=== PATIENT | female | born 1995 | race Caucasian/White ===

== ENCOUNTER 2020-06-24 05:28 | Observation (INO) | payer OTHER, SELFPAY ==
[2020-06-24 05:32] VITALS: BP 129/73; PULSE 85; RESP 20; TEMP 36.5; O2SAT 98
--- NOTE | 2020-06-24 06:04 | PC.NURSE ---
pt just stated she is 35 weeks preg. charge nurse notified
--- NOTE | 2020-06-24 06:10 | PC.NURSE ---
bernie OB, report to Benita MYLES. pt to be transported to Labor and Delivery for obs.
[2020-06-24 06:30] VITALS: BMI 36.3
[2020-06-24 06:31] VITALS: BP 101/70; PULSE 82
[2020-06-24 07:43] LABS: Add Urine Microscopic? YES; Appearance Urine Clear (Clear); Bacteria Urine Trace /hpf; Bilirubin Urine Negative (Negative); Blood Urine Negative (Negative); Color Urine Straw (Yellow); Glucose Urine UA Negative (Negative); Ketones Urine Negative (Negative); Leukocyte Esterase Ur Trace LEU/UL (NEGATIVE); Nitrate Urine Negative (Negative); Protein Urine Negative (Negative); Specific Grav Ur 1.011 (1.001-1.035); Squamous Epithelial Cell Urine Few /hpf (Few); Urobilinogen Urine Negative mg/dL (<2.0); WBC Urine 0-3 /hpf (0-3)
--- NOTE | 2020-06-24 08:31 | OBADM ---
This patient, Baylee Perez, admitted to the OB room OB Post 116 for observation. Patient/family oriented to hospital policies and general routines including ID bracelet, bed and alarms, visiting hours, pain management, procedures, bathroom and other care routines, personal items, smoking policy, room service/diet, and visiting hours. Patient/Family are encouraged to report perceived risks to care and to ask questions if they do not understand what they are told or what they should do.
--- NOTE | 2020-07-03 18:16 | P.PNOB_ITS ---
OB - Triage/Final Diagnosis Visit Information Date of evaluation: 06/26/20 Comments/Additional reasons for admission: Growth restriction Evaluation Baseline heart rate: 144 Variability: Average (6-10) monitor accelerations: Present monitor decelerations: Variable Cervical dilation (cm): 0 Cervical effacement (%): 0 station: -3 Laboratory results: Laboratory Tests 06/24/20 07:32 Urine Color Straw Urine Appearance Clear Urine pH 7.0 Ur Specific [place] 1.011 Urine Protein Negative Urine Glucose (UA) Negative Urine Ketones Negative Ur Blood (Man) Negative Urine Nitrate Negative Urine Bilirubin Negative Urine Urobilinogen Negative Ur Leukocyte Esterase Trace H Urine WBC 0-3 Ur Squamous Epith Cells Few Urine Bacteria Trace Final Diagnosis (1) growth restriction: Status: Acute (2) 36 weeks gestation of : Code(s): Z3A.36 - 36 weeks gestation of Status: Acute
== END 2020-06-24 08:30 | disposition home or self-care (01) ==
LOC: ANHED 06:02 → ANHOBPP 06:20
PROVIDERS: Admitting Provider Obstetrics & Gynecology; PCP Obstetrics & Gynecology; Visit Provider Obstetrics & Gynecology
DX: O36.5930 Maternal care for other known or suspected poor fetal growth, third trimester, not applicable or unspecified (principal); Z3A.36 36 weeks gestation of pregnancy
CPT/HCPCS: 81001; 87086; G0378; G0379

== ENCOUNTER 2020-06-27 10:18 | Inpatient (IN) | payer OTHER, SELFPAY ==
[2020-06-27] VITALS (14 sets, daily range): BP systolic 87–130; BP diastolic 51–78; PULSE 74–110; RESP 20; TEMP 36.2–36.6; BMI 36.3
--- NOTE | ~2020-06-27 | US_ITS ---
EXAMINATION: US OB follow up w BPP EXAM DATE: 06/27/2020 12:39 INDICATION: Back pain. Check growth. BPP. 3rd trimester. TECHNIQUE: Pelvic obstetrical transabdominal sonogram was performed by a technologist. There are mu ltiple grayscale and Doppler images available for interpretation. There are no earlier studies of is gestation for comparison. FINDINGS: There is a single fetus identified in vertex presentation with a heart rate of 131 beats pe r minute. The placenta is located in the fundal position. There is no sonographic evidence of retrop lacental hemorrhage identified. The amniotic fluid index is 14.6 centimeters, which is normal. BIOMETRIC DATA: Biparietal diameter (BPD): 3.4cm ----------------> 33 weeks 5 days. Head circumference (HC): 30.8 cm ----------------> 34 weeks 2 days. Abdominal circumference (AC): 29.4 cm ----------> 33 weeks 3 days. Femur length (FL): 6.6 cm --------------------------> 33 weeks 6 days. These measurements are concordant. HC/AC ratio is 1.05 (The 5th -- 95th percentile range is 0.95-1.11. Estimated weight is 2249 g +/- 337 g. This is the 5th percentile percentile when the currently reported clinical gestation age 36 weeks 1 day, clinical estimated date of delivery (TYLER-OPE) 07/24 is used. estimated gestational age based on measurements from this exam is 33 weeks 6 days, wit h an estimated date of delivery (TYLER-AUA) 08/09. BIOPHYSICAL PROFILE (performed by the technologist) breathing (30 sec sustained breathing in 30 minutes): 2 out of 2 movement (3 gross body movements in 30 minutes): 2 out of 2 tone (one episode of jppvisy-luvhhbkjr-qnkutvi limb movement): 2 out of 2 Amniotic fluid pocket (2 cm): 2 out of 2 Total score: 8 out of 8 IMPRESSION: 1. Single fetus in vertex presentation with heart rate 131 beats per minute. 2. Estimated weight of 2249 grams, 5th percentile using the currently reported clinical gestat ion age of 36 weeks 1 day, TYLER(OPE) 08/03. 3. Normal PATRICIO and BPS. Reviewed, dictated and finalized at location B. IMPRESSION: 1. Single fetus in vertex presentation with heart rate 131 beats per minute. 2. Estimated weight of 2249 grams, 5th percentile using the currently re ported clinical gestation age of 36 weeks 1 day, TYLER(OPE) 08/03. 3. Normal PATRICIO and BPS.
--- NOTE | 2020-06-27 10:18 | OBADM ---
This patient, Baylee Perez, admitted to the OB room Labor/Delivery/Recovery 117 for observation. MFM office called unit prior pt arrival for evaluation of wellbeing due to BPP 6/8 and small variable during NST. Patient/family oriented to hospital policies and general routines including ID bracelet, bed and alarms, visiting hours, pain management, procedures, bathroom and other care routines, personal items, smoking policy, room service/diet, and visiting hours. Patient/Family are encouraged to report perceived risks to care and to ask questions if they do not understand what they are told or what they should do.
--- NOTE | 2020-06-27 11:45 | PC.NURSE ---
called Dr. Guardado and notified pt admission for BPP6/8 and decel in office. Dr. Guardado states pt has sever growth restriction of 6th percentile and need to be induced. Dr. Guardado is off today and he requested to contact Dr. Slaughter for farther order.
--- NOTE | 2020-06-27 12:05 | PC.NURSE ---
Called Dr. Slaughter report given regarding to pt condition and Dr. Guardado's request for induction of labor. Order received for Ultrasound for Growth and BPP.
--- NOTE | 2020-06-27 14:15 | PC.NURSE ---
Dr. Slaughter at bedside, reviewed strip and ultrasound report. Dr. Slaughter at bedside and discussed plan of care for induction of labor. Pt agreed with plan of care. proceed to cervidil induction.
--- NOTE | 2020-06-27 15:01 | PM.IMHP ---
H&P: HPI History of Present Illness Date/Time: 06/27/20 15:01 Chief complaint: Back pain Narrative: Baylee Perez is a 24 year old female 1 patient who has had care with Dr. HURD. PATIENT HAS BEEN DIAGNOSED AND MONITOR DUE TO INTRAUTERINE GROWTH RESTRICTION WITH M EVALUATION AND EVALUATION WELL. TODAY WITH SENT TO THE MATERNAL MEDICINE OFFICE FOR TESTING AND WAS NOTED TO HAVE DECELERATIONS ON HER NST WELL A BPP OF 6/8 ( E 2 OFF FOR BREATHING). Therefore presented to labor and delivery for induction for Dr. Angel camacho and as he is not covering we will initiate induction. I have reviewed her old records and her she is 36 weeks by early ultrasounds with growth from the 5th percentile. Review of Systems Review of Systems: All systems reviewed & are unremarkable except as noted in HPI and below Meds Home Medications and Allergies Home Medications Medication Instructions Recorded Confirmed Type M- Plus tablet 06/24/20 History Allergies Allergy/AdvReac Type Severity Reaction Status Date / Time Penicillins Allergy Hives Verified 06/24/20 05:35 Vital Signs Vital Signs - 24 hr 06/27/20 10:42 06/27/20 10:45 06/27/20 11:02 Pulse Rate 98 106 H 99 Blood Pressure 117/70 99/77 L 87/51 L 06/27/20 11:15 Pulse Rate 103 H Blood Pressure 102/64 Exam Const: General: no acute distress Resp: Auscultation: clear to auscultation bilaterally Cardio: Rate: regular rate Rhythm: regular rhythm GI: GI Palp: Yes Soft to palpation Other: Fundi 38cm. Assessment and Plan Assessment and plan (1) 36 weeks gestation of : Code(s): Z3A.36 - 36 weeks gestation of Status: Acute (2) growth restriction: Status: Acute Additional Plan discussed at length with patient the plan at this point and will be proceeding with Cervidil cervical ripening to be followed by Pitocin induction and/or amniotomy. I have also discussed patient the possibility of respiratory issues which may warrant further hospitalization hand or transfer to tertiary facility. She states good understanding and desires to proceed. Questions have all been answered.
--- NOTE | 2020-06-27 16:26 | LDADM ---
This patient, Baylee Perez, was admitted to Labor/Delivery/Recovery 107 on 06/27/20 at 10:19. Plans for labor, pain management and were discussed with patient. Patient/family oriented to hospital policies and general routines including ID bracelet, bed and alarms, visiting hours, pain management, procedures, bathroom and other care routines, personal items, smoking policy, room service/diet and guest tray routines, security routines, call light, and visiting hours. Patient/Family are encouraged to report perceived risks to care and to ask questions if they do not understand what they are told or what they should do. See OBIX for further documentation.
[2020-06-27] MEDS: DINOPROSTONE 10 MG VAG INSERT VAGINAL (16:54)
[2020-06-27 17:30] LABS: Basophils Percent Auto 0.3 % (0.2-1.2); Eosinophils Absolute Auto 0.1 K/mm3 (0-0.3); Eosinophils Percent Auto 0.8 % (0-4.4); Hematocrit 41.2 % (37.0-47.0); Hemoglobin 13.7 g/dL (12.0-15.0); Immature Granulocyte Absolute 0.05 K/mm3 (0.00-0.031); Immature Granulocyte Percent A 0.4 % (0-0.5); Lymphocytes Absolute Auto 1.88 K/mm3 (0.9-3.2); Lymphocytes Percent Auto 15.6 % (18.3-44.2); Mean Corpuscular HGB Conc 33.3 g/dl (32-36); Mean Corpuscular Hemoglobin 31.1 pg (26-34); Mean Corpuscular Volume 93.6 fl (80-100); Mean Platelet Volume 10.8 fl (7.4-10.4); Monocytes Absolute Auto 0.7 K/mm3 (0.1-0.6); Monocytes Percent Auto 5.8 % (2.6-8.5); Neutrophils Absolute Auto 9.3 K/mm3 (1.3-6.7); Neutrophils Percent Auto 77.1 % (45.5-73.1); Platelet Count Result 277 k/mm3 (150-375); Red Cell Distribution Width 13.7 % (11.5-14.5)
[2020-06-27] MEDS: CLINDAMYCIN 900 MG/NS 50 ML 900 MG/50 ML PIGGYBACK 50 MG IVPB (18:17)
[2020-06-27 18:24] LABS: HIV 1/2 Ab P24 Ag Result Negative (Negative)
[2020-06-28] VITALS (82 sets, daily range): BP systolic 98–147; BP diastolic 49–95; PULSE 59–134; RESP 16–20; TEMP 36.2–37; O2SAT 97–100
[2020-06-28] MEDS: fentaNYL CITRATE INJ (*CRX) 100 MCG/2 ML VIAL 50 MCG IV PUSH (01:45)
[2020-06-28] MEDS: CLINDAMYCIN 900 MG/NS 50 ML 900 MG/50 ML PIGGYBACK 50 MG IVPB ×2 (02:17→10:23)
[2020-06-28] MEDS: ONDANSETRON INJ 4 MG/2 ML VIAL IV PUSH (04:32)
[2020-06-28] MEDS: LACTATED RINGERS 1,000 ML 125 ML IV CONT ×2 (05:14→11:32)
[2020-06-28] MEDS: OXYTOCIN 30 UNITS/NS 500 ML 30 UNITS/500 ML BAG 6 UNITS IV CONT (05:14)
[2020-06-28] MEDS: fentaNYL CITRATE INJ (*CRX) 100 MCG/2 ML VIAL IV PUSH ×2 (06:44→09:00)
--- NOTE | 2020-06-28 07:12 | P.PNOB_ITS ---
OB - PN: Subj Subjective Date/time seen: 06/28/20 07:12 Cervix 2/50/-3. AROM (clear) Continue pitocin/expect OB - PN: Obj Data Labs CBC & Chem 7: 06/27/20 16:52 Labs: Laboratory Results - last 24 hr 06/27/20 06/27/20 06/27/20 16:52 16:52 16:52 WBC 12.0 H RBC 4.40 Hgb 13.7 Hct 41.2 MCV 93.6 MCH 31.1 MCHC 33.3 RDW 13.7 Plt Count 277 MPV 10.8 H Immature Gran % (Auto) 0.4 Neut % (Auto) 77.1 H Lymph % (Auto) 15.6 L [place] % (Auto) 5.8 Eos % (Auto) 0.8 Baso % (Auto) 0.3 Lymph # (Auto) 1.88 [place] # (Auto) 0.7 H Eos # (Auto) 0.1 Baso # (Auto) 0.0 Abs Immat Gran (auto) 0.05 H Absolute Neuts (auto) 9.3 H Absolute Nucleated RBC 0.0 Nucleated RBC % 0.0 HIV 1&2 Ab/P24 Ag 4thGn Negative Blood Type A Positive Antibody Screen Negative Imaging Radiologist's impression: Impressions Obstetrical Follow-Up 06/27/20 12:46 IMPRESSION: 1. Single fetus in vertex presentation with heart rate 131 beats per minute. 2. Estimated weight of 2249 grams, 5th percentile using the currently reported clinical gestation age of 36 weeks 1 day, TYLER(OPE) 08/03. 3. Normal PATRICIO and BPS. OB - PN A/P Time Spent With Patient Time: Total time spent is greater than 50% in coordination of care (as documented) at patient's floor/unit and/or counseling patient:
[2020-06-28 07:56] LABS: Rapid Plasma Reagin Non-Reactive (NonReactive)
--- NOTE | 2020-06-28 08:08 | WPDHPUPDATE1 ---
History and Physical Update Update Date/Time: 06/28/20 08:08 History and Physical has been reviewed, including an updated exam of the patient. There are NO changes in the patient's condition. Feeling more cramping now. Risks, benefits, and alternatives have been discussed and questions answered. Patient agrees to proceed with procedure.
--- NOTE | 2020-06-28 11:54 | WPDANESEPP ---
Anes - Eval Pre Procedure Procedure: labor epidural Date/Time: 06/28/20 11:54 Surgeon: joselyn Preop Diagnosis: pain during labor Pre Op Diagnosis: Back pain Patient Data Age: 24 Gender: F Height: 1.6 m Weight: 93 kg Last Vital Signs Temp 37.0 C 06/28/20 07:06 Pulse 94 06/28/20 11:45 Resp 20 06/27/20 22:29 BP 119/76 06/28/20 11:45 Pulse Ox 99 06/28/20 11:53 Allergies Allergy/AdvReac Type Severity Reaction Status Date / Time Penicillins Allergy Hives Verified 06/24/20 05:35 Home Medications Medication Instructions Recorded Confirmed Type M- Plus tablet 06/24/20 History Laboratory Tests 06/27/20 06/27/20 06/27/20 16:52 16:52 16:52 WBC 12.0 K/mm3 H K/mm3 (4.5-10.0) RBC 4.40 M/mm3 M/mm3 (4.2-5.4) Hgb 13.7 g/dL g/dL (12.0-15.0) Hct 41.2 % % (37.0-47.0) MCV 93.6 fl fl (80-100) MCH 31.1 pg pg (26-34) MCHC 33.3 g/dl g/dl (32-36) RDW 13.7 % % (11.5-14.5) Plt Count 277 k/mm3 k/mm3 (150-375) MPV 10.8 fl H fl (7.4-10.4) Immature Gran % (Auto) 0.4 % % (0-0.5) Neut % (Auto) 77.1 % H % (45.5-73.1) Lymph % (Auto) 15.6 % L % (18.3-44.2) [place] % (Auto) 5.8 % % (2.6-8.5) Eos % (Auto) 0.8 % % (0-4.4) Baso % (Auto) 0.3 % % (0.2-1.2) Lymph # (Auto) 1.88 K/mm3 K/mm3 (0.9-3.2) [place] # (Auto) 0.7 K/mm3 H K/mm3 (0.1-0.6) Eos # (Auto) 0.1 K/mm3 K/mm3 (0-0.3) Baso # (Auto) 0.0 K/mm3 K/mm3 (0.0-0.1) Abs Immat Gran (auto) 0.05 K/mm3 H K/mm3 (0.00-0.031) Absolute Neuts (auto) 9.3 K/mm3 H K/mm3 (1.3-6.7) Absolute Nucleated RBC 0.0 K/mm3 K/mm3 (0.0-0.012) Nucleated RBC % 0.0 % % (0.0-0.2) RPR Non-reactive (NonReactive) HIV 1&2 Ab/P24 Ag 4thGn Blood Type A Positive Antibody Screen Negative 06/27/20 16:52 WBC RBC Hgb Hct MCV MCH MCHC RDW Plt Count MPV Immature Gran % (Auto) Neut % (Auto) Lymph % (Auto) [place] % (Auto) Eos % (Auto) Baso % (Auto) Lymph # (Auto) [place] # (Auto) Eos # (Auto) Baso # (Auto) Abs Immat Gran (auto) Absolute Neuts (auto) Absolute Nucleated RBC Nucleated RBC % RPR HIV 1&2 Ab/P24 Ag 4thGn Negative (Negative) Blood Type Antibody Screen Patient hx anesthesia problems: none Family hx anesthesia problems: none PMFSH Social History Social History Smoking status: Current every day smoker Tobacco type: cigarettes Second hand tobacco smoke exposure: Yes Substance use: never Gender identity (if verbalized by the patient): Female Spiritual care concerns: No Exam Day of Procedure 06/28/20 11:54
--- NOTE | 2020-06-28 13:55 | PM.OBPRVD ---
OB - Delivery Note Procedure Delivery date: 06/28/20 Procedure: Normal spontaneous vaginal delivery events: Labor Induction and Meconium Stained Fluid Intrapartal events: None Induction method: AROM, per pitocin protocol and other (cervidil) Delivery monitor: internal FHT and internal uterine Route of delivery: Laceration description: Perineal - 1st Degree Delivery repair: vicryl (2-0 Vicryl) Specimen: Yes Estimated blood loss (mL): 300 Anesthesia type: Epidural Narrative: Once she was noted to be complete and ready to push, the labor bed was broken down and legs were placed in stirrups for support. With contractions and maternal efforts, the presented in ROXANNA position. The head was delivered. Checked for nuchal cord, no nuchal cord noted. Gentle downward traction was applied and the anterior shoulder delivered without issues, followed by the posterior shoulder and rest of the body. was vigrous and crying, so delayed cord clamping of approximately 1 minute was performed. Bulb suction used. The cord was clamped and cut. Cord gasses collected. Placenta was delivered spontaneously. IV oxytocin administered and fundal massage applied. Exam was performed to identify any lacerations. 1st degree perineal laceration and left vaginal laceration was repaired with 2-0 Vicryl. Good hemostasis noted. Patient tolerated the procedure well. All instrument and sponge counts were correct at the end of the procedure. [place] Baby Date of : 06/28/20 Time of : 13:28 Weeks of gestation at delivery: 36 Infant gender: Male Weight (pounds): 4 Weight (ounces): 4 presentation: vertex position: Left Occiput Anterior Placenta delivery description: Spontaneous cord vessel description: 3 Vessels score one minute: 8 score five minutes: 9
--- NOTE | 2020-06-28 16:05 | OBPPTRN ---
Patient transferred to post room # 283 via wheelchair. Support person present. Oriented to unit, room, information board, rooming in, admission packet and security measures. Patient verbalizes understanding.
[2020-06-28] MEDS: BENZOCAINE 20% AER SPR (*SP) 56 GM CAN 1 SPRAY TOPICAL (16:13)
[2020-06-28] MEDS: WITCH HAZEL 40 PADS 1 PAD TOPICAL (16:13)
[2020-06-28] MEDS: IBUPROFEN 600 MG TABLET PO (16:35)
[2020-06-28] MEDS: ACETAMINOPHEN 325 MG TABLET 650 MG PO (19:06)
[2020-06-29 05:09] LABS: Hematocrit 37.4 % (37.0-47.0); Hemoglobin 12.4 g/dL (12.0-15.0)
[2020-06-29] MEDS: DOCUSATE SODIUM 100 MG CAPSULE PO ×2 (07:45→16:06)
[2020-06-29] MEDS: IBUPROFEN 600 MG TABLET PO ×2 (07:45→16:06)
[2020-06-29] MEDS: WITCH HAZEL 40 PADS 1 PAD TOPICAL (07:45)
[2020-06-29] MEDS: BENZOCAINE 20% AER SPR (*SP) 56 GM CAN 1 SPRAY TOPICAL (07:45)
[2020-06-29] MEDS: ACETAMINOPHEN 325 MG TABLET 650 MG PO (07:46)
[2020-06-29 08:00] VITALS: BP 113/70; PULSE 84; RESP 18; TEMP 36.6
--- NOTE | 2020-06-29 11:49 | PM.OBPNVD ---
OB - PN: Subj Subjective Date/time seen: 06/29/20 11:49 PPD#1 Baylee reports doing well today. She denies pain. 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 She is tolerating regular diet. She is ambulating w/o issue. She is voiding and passing flatus. She is bottle feeding. She would like her son to get circumcised. She denies fever, chills, N/V, headache, SOB, CP, vision changes, dizziness or palpitations OB - PN: Obj Data Labs CBC & Chem 7: 06/29/20 03:40 Labs: Laboratory Results - last 24 hr 06/29/20 03:40 Hgb 12.4 Hct 37.4 OB - PN A/P Assessment and Plan (1) growth restriction: Status: Acute (2) Vaginal delivery: Code(s): O80 - Encounter for full-term uncomplicated delivery Status: Acute Plan day: 1 Plan: routine care, discharge home (tomorrow) and follow up 6 weeks (with Dr. Guardado) Time Spent With Patient Time: Total time spent is greater than 50% in coordination of care (as documented) at patient's floor/unit and/or counseling patient: Review of Systems Review of Systems: All systems reviewed & are unremarkable except as noted in HPI and below (HPI) Exam Const: General: comfortable, no acute distress, alert and awake Orientation/consciousness: patient oriented x3 Resp: Effort & Inspection: normal respiratory effort Auscultation: clear to auscultation bilaterally Cardio: Rate: regular rate GI: Auscultation: normal bowel sounds Other: non-distended, soft, non-tender : Other: fundus firm below the umbilicus Psych: Appearance: grossly normal Affect: normal affect Attitude: cooperative Judgement: Good judgement present (Psych)
--- NOTE | 2020-06-29 14:37 | PCCCNOTE ---
Care Coordination Note: Met with pt. today who reports she lives at home with FOB Luis E and Luis E's mother Di. This is pt. and Luis E's first child. Pt. reports she has a supportive family including Di and her mother. Pt. plans to utilize [facility] services at discharge, resources were provided to assist pt. Pt. has all necessary supplies for the baby including a crib, car seat, diapers, bottles etc. Pt. was receptive to resources. Denies any further case management needs.
[2020-06-29 19:40] VITALS: BP 98/58; PULSE 90; RESP 16; TEMP 36.5; O2SAT 100
[2020-06-30] MEDS: BENZOCAINE 20% AER SPR (*SP) 56 GM CAN 1 SPRAY TOPICAL (07:37)
[2020-06-30] MEDS: WITCH HAZEL 40 PADS 1 PAD TOPICAL (07:37)
[2020-06-30] MEDS: DOCUSATE SODIUM 100 MG CAPSULE PO (07:37)
[2020-06-30 08:20] VITALS: BP 95/63; PULSE 84; RESP 18; TEMP 36.3; O2SAT 98
[2020-06-30 08:48] VITALS: PULSE 90; RESP 16; O2SAT 100
--- NOTE | 2020-07-13 08:26 | PM.OBDSVD ---
DS: Admitting Diagnosis Admitting Diagnosis Admitting Diagnosis: 36 week gestation IUGR DS: Discharge Diagnosis Discharge Diagnosis (1) Vaginal delivery: Code(s): O80 - Encounter for full-term uncomplicated delivery Status: Acute (2) growth restriction: Status: Acute (3) 36 weeks gestation of : Code(s): Z3A.36 - 36 weeks gestation of Status: Acute OB - DS: Summary OB Procedures : None OB Procedures Intrapartum: Spontaneous Vag Delivery OB Procedures: : None Peripartum Data Infant Delivery Method: Natural Vaginal Laceration description: Perineal - 1st Degree complications: none Status at Discharge Functional status at discharge: independent ambulation Overall status at discharge: patient is progressing back to baseline Time Spent with Patient Time attestation: Total time spent providing and/or coordinating discharge services: DS: Data Data Completed and Pending Completed studies during hospitalization: Pending at discharge 06/28/20 14:48 Surgical [PTH] Routine Discharge Plan Discharge Attending physician on discharge: Kylee Flores Consulting providers: Daryl Stephen ; Cory Hyde Discharging Clinician: Kylee Flores Anticipated Discharge Date/Time: 06/30/20 12:00 Patient Disposition: Home, Self-Care Activity: pelvic rest Diet: as tolerated and regular Discharge Instructions: Education: Mom and Baby Guide Given to: Mother Follow-Up: Call your delivering provider's office for an appointment to be seen in: 6 Weeks Mom and baby should come to the [facility] for the follow-up appointment. Appointment Date/Time: July 01, 2020 at 8:00 am What to expect at your follow-up visit: Blood Pressure Check Physical Assessment Call [phone] if you are unable to keep your appointment time. BREAST CARE: * Wear a snug supportive bra. Bottle Feeding: * May apply ice packs EPISIOTOMY/PERINEAL CARE: * Until bleeding stops, use your steve bottle after urinating * Change your pad frequently throughout the day * You may take sitz baths several times a day (fill your bathtub with warm water and soak for 20 minutes.) Do NOT bathe in the water * No tub baths until seen by your physician - You may shower ACTIVITY: * Rest as much as possible. * Do not exercise or lift anything heavier than your baby (such as laundry or other children.) * Avoid stairs or driving as much as possible. * Do not put anything into the vagina. No douching, tampons, or sexual activity until seen by physician. NOTIFY PHYSICIAN IF YOU HAVE ANY QUESTIONS OR IF ANY OF THE FOLLOWING SYMPTOMS OCCUR: * If your vaginal area becomes red, swollen, or more painful than what you have experienced in the hospital. * If your vaginal bleeding smells bad. * If your vaginal bleeding becomes more heavy than a period or if your bleeding changes from brownish to bright red. However, you may pass an occasional walnut-sized clot once or twice for the first week . * If you experience a sharp, shooting pain in your calves. * If you discover a hard, reddened area on your breast or if you experience flu-like symptoms. DIET: * Eat regular, well-balanced meals. * Drink plenty of fluids daily. If , drink to thirst. Stand Alone Forms: General Discharge Information Follow-up/Referrals: Yogesh Guardado MD [Physician] - 6 Weeks (call to make appointment) Discharge Medications: New acetaminophen [Mapap (acetaminophen)] 325 mg Tablet 650 mg PO Q6H PRN (Reason: Mild Pain (1-3) Or Headache) 10 Days Qty: 30 RF: 0 ibuprofen 600 mg Tablet 600 mg PO Q6H PRN (Reason: Cramping) 10 Days Qty: 30 RF: 0 Changed M-Yandy Plus 27 mg iron- 1 mg tablet 1 tablet PO DAILY 30 Days Qty: 0 RF: 0 Date of admission: 06/27/20 10:19 Primary Care Provider: PHYSICIAN,AFFILIATE MARKETING COORDINATOR Admitt
== END 2020-06-30 13:28 | disposition home or self-care (01) | DRG 560 ==
LOC: ANHOBPP 10:23 → ANHLDR 15:00 → ANHOB2 06-28 19:15 → ANHLDR 06-30 20:43 → ANHOB2 06-30 20:43
PROVIDERS: Obstetrics & Gynecology; Admitting Provider Obstetrics & Gynecology; Visit Provider Obstetrics & Gynecology
DX: O36.5930 Maternal care for other known or suspected poor fetal growth, third trimester, not applicable or unspecified (principal); O13.4 Gestational [pregnancy-induced] hypertension without significant proteinuria, complicating childbirth; O99.824 Streptococcus B carrier state complicating childbirth; O70.0 First degree perineal laceration during delivery; O99.334 Smoking (tobacco) complicating childbirth; F17.210 Nicotine dependence, cigarettes, uncomplicated; Z3A.36 36 weeks gestation of pregnancy; Z37.0 Single live birth
CPT/HCPCS: 36415; 76816; 76819; 85014; 85018; 85025; 86592; 86703; 86850; 86900; 86901; 88307; A9270; G0432; J2405; J2590; J2795; J3010; J7120

== ENCOUNTER 2022-12-12 15:28 | Observation (INO) | payer OTHER, SELFPAY ==
[2022-12-12 15:46] VITALS: BP 121/77; PULSE 104
[2022-12-12 16:16] VITALS: BMI 34.7
--- NOTE | 2022-12-12 16:16 | OBADM ---
This patient, Baylee Perez, admitted to the OB room OB Post 113 for observation. Patient/family oriented to hospital policies and general routines including ID bracelet, bed and alarms, visiting hours, pain management, procedures, bathroom and other care routines, personal items, smoking policy, room service/diet, and visiting hours. Patient/Family are encouraged to report perceived risks to care and to ask questions if they do not understand what they are told or what they should do.
--- NOTE | 2022-12-12 16:30 | PC.NURSE ---
Patient arrived by ambulance with complaints of lower right quadrant pain. Pain now resolved. No vaginal bleeding, leaking of fluids, no contractions felt. Reactive NST. Dr. Canela notified of patient's arrival. Okay to discharge.
[2022-12-12 16:32] VITALS: BP 121/77
--- NOTE | 2022-12-16 08:08 | PM.OBTRLD ---
OB - Triage/Final Diagnosis Visit Information Reason for evaluation: other ( abdominal pain) Comments/Additional reasons for admission: I have assessed the risk for this patient, Baylee Perez, and determined that she would benefit from observation care.
== END 2022-12-12 16:30 | disposition home or self-care (01) ==
PROVIDERS: Admitting Provider Obstetrics & Gynecology Gynecology; Visit Provider Obstetrics & Gynecology Gynecology
DX: O26.893 Other specified pregnancy related conditions, third trimester (principal); R10.31 Right lower quadrant pain; Z3A.31 31 weeks gestation of pregnancy
CPT/HCPCS: 59025; G0378; G0379

== ENCOUNTER 2023-01-03 19:32 | Observation (INO) | payer OTHER, SELFPAY ==
[2023-01-03 19:54] VITALS: BP 125/66; PULSE 108
[2023-01-03 20:00] VITALS: BP 114/68; PULSE 107; BMI 37.0
[2023-01-03 20:15] VITALS: BP 113/79; PULSE 100
[2023-01-03 20:30] VITALS: BP 113/64; PULSE 98
[2023-01-03 20:45] VITALS: BP 115/70; PULSE 99
[2023-01-03 21:09] LABS: Appearance Urine Clear (Clear); Bacteria Urine Rare /hpf; Bilirubin Urine Negative (Negative); Blood Urine Negative (Negative); Color Urine Yellow (Yellow); Glucose Urine UA Negative (Negative); Ketones Urine Negative (Negative); Leukocyte Esterase Ur 2+ LEU/UL (Negative); Nitrate Urine Negative (Negative); Non Pathogenic Casts 0-2; Protein Urine Negative (Negative); RBC Urine 0-2 /hpf (0-2); Squamous Epithelial Cell Urine Few /hpf (Few); Urobilinogen Urine 0.2 mg/dL (<2.0); pH Urine 6.5 (5.0-9.0)
[2023-01-03 21:12] LABS: Add Urine Microscopic? YES
--- NOTE | 2023-01-03 22:25 | OBADM ---
This patient, Baylee Perez, admitted to the OB room OB Post 117 for observation. Patient/family oriented to hospital policies and general routines including ID bracelet, bed and alarms, visiting hours, pain management, procedures, bathroom and other care routines, personal items, smoking policy, room service/diet, and visiting hours. Patient/Family are encouraged to report perceived risks to care and to ask questions if they do not understand what they are told or what they should do.
--- NOTE | 2023-01-06 14:45 | P.PNOB_ITS ---
OB - Triage/Final Diagnosis Visit Information Reason for evaluation: threatened labor Comments/Additional reasons for admission: I have assessed the risk for this patient, Baylee Perez, and determined that she would benefit from observation care. Evaluation Laboratory results: Laboratory Tests 01/03/23 19:55 Urine Color Yellow Urine Appearance Clear Urine pH 6.5 Ur Specific [place] 1.010 Urine Protein Negative Urine Glucose (UA) Negative Urine Ketones Negative Ur Blood (Man) Negative Urine Nitrate Negative Urine Bilirubin Negative Urine Urobilinogen 0.2 Leukocyte Esterase Rfl 2+ H Urine RBC 0-2 Urine WBC 6-10 H Ur Squamous Epith Cells Few Urine Bacteria Rare Urine Casts 0-2
== END 2023-01-03 22:43 | disposition home or self-care (01) ==
PROVIDERS: Admitting Provider Obstetrics & Gynecology; Visit Provider Obstetrics & Gynecology
DX: O47.03 False labor before 37 completed weeks of gestation, third trimester (principal); O26.893 Other specified pregnancy related conditions, third trimester; R10.30 Lower abdominal pain, unspecified; Z3A.35 35 weeks gestation of pregnancy
CPT/HCPCS: 81001; 87086; 87088; G0378; G0379